=== PATIENT | female | born 1980 | race Caucasian/White ===

== ENCOUNTER 2016-07-13 03:50 | Inpatient (IN) | payer SELFPAY ==
[~2016-07-13] VITALS: Ht 144.8 cm; Wt 81.1 kg
[2016-07-13 04:44] VITALS: Ht 144.8 cm; Wt 81.1 kg
[2016-07-13 04:45] VITALS: BP 121/76; PULSE 78; RESP 20
[2016-07-13] MEDS ORDERED: ONDANSETRON 4 MG INJ IV ONE (04:54)
[2016-07-13] MEDS ORDERED: PRENAT PO (04:56)
[2016-07-13] MEDS ORDERED: MEPERIDINE 25 MG INJ IV ONE (05:00)
[2016-07-13] MEDS ORDERED: LACTATED RINGER'S 1,000 ML IV SCH (05:00)
[2016-07-13] MEDS ORDERED: LACTATED RINGER'S 1,000 ML IV ONE (05:00)
[2016-07-13 05:58] LABS: ALBUMIN 3.2 g/dl (3.3-4.9)
[2016-07-13 05:59] LABS: POTASSIUM 3.5 mmol/L (3.5-5.1)
--- NOTE | 2016-07-13 06:00 | RADRPT ---
PROCEDURE: US Abdomen (right upper quadrant). CLINICAL INDICATION: Abdominal pain. TECHNIQUE: Multiple real-time longitudinal and transverse images of the right upper quadrant of th e abdomen were acquired utilizing a curved array transducer. Images were reviewed on a high-resoluti on PACS workstation. COMPARISON: None FINDINGS: The liver is normal in size and demonstrates normal echogenicity. No focal intrahepatic mass is id entified. The gallbladder contains stones. There is no pericholecystic fluid or gallbladder wall t hickening. No intra or extrahepatic biliary dilatation is seen. The common bile duct measures 2.9 m m in maximal dimension. The portal and hepatic veins are patent demonstrating normal directional juan w. The visualized portions of the pancreas are unremarkable with obscuration of the tail of the panc reas. No free fluid is identified. The right kidney measures 11.6 cm in length. There is normal echogenicity within the right kidney. There is no perinephric fluid collection. No hydronephrosis, mass, or calculus is seen. IMPRESSION: Cholelithiasis. Otherwise, unremarkable right upper quadrant ultrasound. RPTAT: .Lulú Oakes MD, MD Date Time Electronically viewed and signed by .Lulú Oakes MD, on 07/13/2016 06:00 .G/
[2016-07-13 06:01] LABS: ALBUMIN/GLOBULIN RATIO 0.88; CREATININE 0.46 mg/dl (0.44-1.00); TOTAL PROTEIN 6.8 g/dl (6.1-8.1)
[2016-07-13 06:02] LABS: CALCIUM 8.5 mg/dl (8.4-10.2); URIC ACID 4.4 mg/dl (3.1-7.9)
[2016-07-13 06:08] LABS: BASOPHILS % 0.3 % (0.0-2.0); EOSINOPHILS # 0.1 10^3/ul (0.0-0.5); EOSINOPHILS % 1.1 % (0.0-7.0); HEMATOCRIT 36.1 % (37.0-47.0); HEMOGLOBIN 12.4 g/dl (12.0-16.0); LYMPHOCYTES % 13.3 % (15.0-51.0); MEAN CORPUSCULAR HEMOGLOBIN 30.6 pg (29.0-33.0); MEAN CORPUSCULAR HGB CONC 34.3 g/dl (32.0-37.0); MEAN CORPUSCULAR VOLUME 89.1 fl (82.0-101.0); MEAN PLATELET VOLUME 8.6 fl (7.4-10.4); MONOCYTE # 0.5 10^3/ul (0.3-0.9); MONOCYTES % 6.6 % (0.0-11.0); NEUTROPHILS % 78.7 % (39.0-77.0); PLATELET COUNT 292 10^3/UL (140-440); RED BLOOD COUNT 4.05 10^6/ul (4.20-5.40); RED CELL DISTRIBUTION WIDTH 13.4 % (11.5-14.5); UNCORRECTED WBC 7.6 10^3/ul (4.8-10.8); WHITE BLOOD COUNT 7.6 10^3/ul (4.8-10.8)
--- NOTE | 2016-07-13 06:11 | RADRPT ---
PROCEDURE: ULTRASOUND OBSTETRICAL CLINICAL INDICATION: 35-year-old female with pelvic pain. TECHNIQUE: Multiple sonographic images of the pelvis were obtained. The images were reviewed on a PACS workstation. COMPARISON: No prior studies are available for comparison. FINDINGS: The cervix is closed with a length of 3.0 cm measured transvaginally. There is a single viable intra uterine gestation. Cardiac activity is present with 141 beats per minute. There is a breech present ation. Measurements were made in order to determine age. The results are as follows: BPD = 6.76 cm, HC = 24.99 cm, AC = 23.70 cm, FL = 5.17 cm. This yields and estimated gestational ag e of approximately 27 weeks 4 days. The estimated date of delivery is October 08, 2016. The EFW = 11 20 +/- 168 g (2 lb 8 oz). The GP is 56%. The placenta is anterior. There is no evidence for an abruption or placenta previa. There is a normal amount of amniotic fluid with an MALICK = 12.3 cm. IMPRESSION: 1. Single viable intrauterine gestation of approximately 27 weeks 4 days with breech presentation. The estimated date of delivery is October 08, 2016. 2. The estimated weight is 1120 +/- 168 g (2 lb 8 oz). The GP is 56%. .Hakeem Holt MD, MD Date Time Electronically viewed and signed by .Hakeem Holt MD, MD on 07/13/2016 06:11 .M/
[2016-07-13 06:23] LABS: CONDITION 1
[2016-07-13] MEDS ORDERED: DEXTROSE 5%-LR 1,000 ML IV SCH (06:23)
[2016-07-13] MEDS ORDERED: ONDANSETRON 4 MG INJ IV PRN (06:30)
--- NOTE | 2016-07-13 06:40 | TRIAGE ---
OB Triage Datetime Report Generated by CPN: 07/13/2016 06:40 Datetime: 07/13/2016 04:12 Time of Arrival: 07/13/2016 03:48 EGA: 27.2 Arrived By: Wheelchair Arrived From: Home Chief Complaint: w/ hx PTD x 2 and gallstones to OB triage w/ c/o abd pain Movement: Present Contractions: Denies/Absent Rupture of Membranes: Denies Vaginal Bleeding: None Vaginal Discharge: Denies Recent Sexual Intercouse: Denies Abdominal Trauma: Not Applicable Patient Complaints: Nausea; Vomiting; Epigastric Pain Initial Plan: EFM Datetime: 07/13/2016 04:04 Maternal Assessment Level of Consciousness: Fully Conscious Headache: Denies Blurred Vision: No Nausea/Vomiting: Present RUQ Epigastric Pain: Present Facial Edema: None Labor Evaluation Frequency: placed Monitor Mode: External Heart Rate Monitor Mode: External US Comments: FHT 125 Pain Assessment Pain Scale: 6 Pain Presence: Intermittent Pain Type: Sharp; Stabbing Pain Location: Abdomen
[2016-07-13 06:57] LABS: ADD UMIC YES; URINE BILIRUBIN (Dip) NEGATIVE (NEGATIVE); URINE BLOOD (Dip) NEGATIVE (NEGATIVE); URINE COLOR YELLOW (YELLOW); URINE GLUCOSE (Dip) NEGATIVE (NEGATIVE); URINE KETONES (Dip) TRACE (NEGATIVE); URINE LEUKOCYTE ESTERASE (Dip) TRACE (NEGATIVE); URINE NITRITE (Dip) NEGATIVE (NEGATIVE); URINE TOTAL PROTEIN (Dip) TRACE (NEGATIVE); URINE UROBILINOGEN (Dip) 1.0 E.U./dL (0.1-1.0)
[2016-07-13 07:16] LABS: BACTERIA,URINE FEW; SQUAMOUS EPITHELIAL CELL,UR MODERATE; URINE RBCS NONE SEEN /HPF (0)
--- NOTE | 2016-07-13 07:47 | HP ---
Date/Time of Note Date/Time of Note DATE: 07/13/16 TIME: 07:40 OB - History Hx of Present Chief Complaint: epigastic pain Estimated Due Date: October 10, 2016 : 6 Para: 5 Care: Other ( records not available) Obstetrical Complications: None Medical Complications: Other (gallstones) Past Family/Social History * Past Medical, Surgical, Family and Obstetric Histories reviewed from chart. OB Admission Exam Vital Signs Vital Signs Vital Signs Date Time Temp Pulse Resp B/P Pulse Ox O2 Delivery O2 Flow Rate FiO2 07/13/16 04:45 97.8 78 20 121/76 Room Air Physical Exam HEENT: WNL Heart: Rhythm Normal Lungs: Clear Abdomen: Abnormal (upper abdominal tenderness) Extremities: Normal Reflexes: Normal Heart Rate: 130's Accelerations: Accelerations Present Decelerations: No Decelerations Last 72 hours Lab Results CBC & BMP 07/13/16 05:10 Liver Function Test 07/13/16 05:10 Alanine Aminotransferase (ALT/SGPT) 22 Albumin 3.2 L Alkaline Phosphatase 118 Aspartate Amino Transf (AST/SGOT) 18 Direct Bilirubin 0.00 Total Protein 6.8 OB Assessment/Plan Reason for admission: other Other Assessment: 27 weeks Gallstone pancreatitis Plan: Other Other plan: Admit NPO IV hydration Surgey consult JENNIFER HILL MD Jul 13, 2016 07:46
[2016-07-13] MEDS ORDERED: hydrOXYzine PAMOATE 25 MG CAP PO PRN (08:00)
[2016-07-13] MEDS: MEPERIDINE 50 MG INJ IV PRN ×5 (08:09→19:24)
[2016-07-13] MEDS: CEFTRIAXONE 1 GM/50 ML (PMX) 50 ML IVPB SCH (08:36)
[2016-07-13] MEDS: SOD CHLORIDE 0.9% 1,000 ML IV SCH ×2 (09:51→19:20)
[2016-07-13] MEDS ORDERED: BETAMET NA PHOS/AC(6 MG/ML) 5ML INJ IM ONE (12:30)
[2016-07-13] MEDS: hydrOXYzine HCL 100 MG INJ IM PRN ×3 (16:06→22:36)
--- NOTE | 2016-07-13 21:02 | CONS ---
DATE OF ADMISSION: 07/13/2016 DATE OF CONSULTATION: 07/13/2016 HISTORY OF PRESENT ILLNESS: Ms. Ruiz is a 35-year-old female who was admitted through the ER today due to severe right upper quadrant abdominal pain. She states that symptoms occurred yesterda y. She was seen in the ER yesterday and improved but then worsened again. She had nausea and vomit ing yesterday, but not today. She has a known history of gallstones and has been advised in the pas t to have her gallbladder removed, but has not. PAST MEDICAL HISTORY: Cholelithiasis. PAST SURGICAL HISTORY: None. MEDICATIONS: None. ALLERGIES: NO KNOWN DRUG ALLERGIES. PHYSICAL EXAMINATION: GENERAL: She is a well-nourished, well-developed female in some mild distress. VITAL SIGNS: She is afebrile. Vital signs stable. CHEST: Clear to auscultation bilaterally. HEART: Regular rhythm. ABDOMEN: Soft, with a gravid uterus and severe right upper quadrant tenderness to mild touch. LABORATORY DATA: Reveal white count of 7, hematocrit 36 and platelets 292. Sodium 140, potassium 3 .5, chloride 106, CO2 21, BUN and creatinine of 6.46 and glucose of 87. Her LFTs are no rmal limits. Amylase 145, lipase 304, and ultrasound revealed cholelithiasis, otherwise unremarkabl e. No pericholecystic fluid or gallbladder wall thickening. ASSESSMENT AND PLAN: 1. Ms. Ruiz is a 35-year-old female with right upper quadrant pain. 2. She does not have acute cholecystitis based on ultrasound findings. 3. I am not clear that she does have biliary colic either as she is extremely tender and it is very unlikely to have tenderness with biliary colic. 4. Treat conservatively at this point due to her 27 weeks' . She is not a surgical candid ate at this point, continue supportive care. Dictated By: JUD NEAL/MOLINA Conf#: [id number] DID#: [id number]
[2016-07-13] MEDS ORDERED: MEPERIDINE 50 MG INJ IM PRN (22:30)
[2016-07-14] MEDS ORDERED: HYDROmorphONE 1 MG/ML SYG IV PRN
[2016-07-14] MEDS: SOD CHLORIDE 0.9% 1,000 ML IV SCH ×4 (01:00→23:12)
[2016-07-14 01:12] LABS: BASOPHILS % 0.1 % (0.0-2.0); CONDITION 1; EOSINOPHILS % 0.2 % (0.0-7.0); HEMATOCRIT 34.6 % (37.0-47.0); HEMOGLOBIN 12.1 g/dl (12.0-16.0); LYMPHOCYTES # 0.9 10^3/ul (0.8-2.9); LYMPHOCYTES % 6.5 % (15.0-51.0); MEAN CORPUSCULAR HEMOGLOBIN 30.8 pg (29.0-33.0); MEAN CORPUSCULAR HGB CONC 34.8 g/dl (32.0-37.0); MEAN CORPUSCULAR VOLUME 88.4 fl (82.0-101.0); MONOCYTE # 0.7 10^3/ul (0.3-0.9); MONOCYTES % 5.7 % (0.0-11.0); NEUTROPHIL # 11.5 10^3/ul (1.6-7.5); NEUTROPHILS % 87.5 % (39.0-77.0); PLATELET COUNT 315 10^3/UL (140-440); RED BLOOD COUNT 3.91 10^6/ul (4.20-5.40); RED CELL DISTRIBUTION WIDTH 13.6 % (11.5-14.5); UNCORRECTED WBC 13.1 10^3/ul (4.8-10.8); WHITE BLOOD COUNT 13.1 10^3/ul (4.8-10.8)
--- NOTE | 2016-07-14 01:37 | RADRPT ---
PROCEDURE: Ultrasound examination of the abdomen. CLINICAL INDICATION: Abdominal pain TECHNIQUE: Ultrasound examination of the abdomen. Transabdominal technique was employed. M-mode t echnique employed COMPARISON: 07/13/2016. FINDINGS: Cervix measures 3.03 cm. Heart rate is 136 beats per minute. Presentation is cephalic. Bursitis a nterior grade 1. No evidence of placental abruption. IMPRESSION: Cervix measures 3.03 cm. RPTAT: [facility] Physician Michele Date Time Electronically viewed and signed by Physician Michele on 07/14/2016 01:37 RS/
--- NOTE | 2016-07-14 01:41 | RADRPT ---
PROCEDURE: Renal US. CLINICAL INDICATION: Abdominal pain. TECHNIQUE: Multiple sonographic images of the kidneys were obtained. The images were reviewed on a PACS workstation. COMPARISON: No prior studies are available for comparison. FINDINGS: Proximal abdominal aorta measures 17 mm. Right kidney measures 123 mm. Left kidney measures up to 1 20 mm. Gallbladder wall measures 3 mm. Common bile duct measures 4 mm. Liver measures 173 mm. Stephania er is homogeneous in texture. Pancreas is not visualized secondary to overlying bowel gas. Gallbla dder is unremarkable. The appendix was not included on this examination. IMPRESSION: No acute process in the right upper quadrant. RPTAT: [facility] Physician Michele Date Time Electronically viewed and signed by Physician Michele on 07/14/2016 01:41 RS/
[2016-07-14] MEDS: hydrOXYzine HCL 100 MG INJ IM PRN ×2 (02:32→08:12)
[2016-07-14] MEDS: MEPERIDINE 50 MG INJ IV PRN ×7 (02:33→22:21)
[2016-07-14 10:21] LABS: POTASSIUM 3.4 mmol/L (3.5-5.1)
[2016-07-14] MEDS: CEFTRIAXONE 1 GM/50 ML (PMX) 50 ML IVPB SCH (10:21)
[2016-07-14 10:24] LABS: ALBUMIN/GLOBULIN RATIO 0.93; BILIRUBIN,INDIRECT 0.4 mg/dl (0-1.1); BILIRUBIN,TOTAL 0.4 mg/dl (0.2-1.3); CALCIUM 8.5 mg/dl (8.4-10.2); CREATININE 0.52 mg/dl (0.44-1.00); TOTAL PROTEIN 6.2 g/dl (6.1-8.1)
[2016-07-14] MEDS ORDERED: LORAZEPAM 2 MG INJ IV ONE (11:30)
--- NOTE | 2016-07-14 12:50 | RADRPT ---
PROCEDURE: MRI abdomen without contrast; MRCP CLINICAL INDICATION: abdominal pain TECHNIQUE: Multiplanar, multisequence imaging of the abdomen was obtained without contrast. Imagi ng includes axial T2, T2 fat sat, in and out of phase gradient images, and noncontrast T1 fat-satura alisha images. In addition, a dedicated high T2 signal intensity MRCP images were obtained in multiple planes with 3-D reconstructions. COMPARISON: Ultrasound of the abdomen on the same date FINDINGS: The gallbladder is distended with wall thickening adjacent fat stranding and fluid suggestive for in flammation. The gallstone is present within the gallbladder layering at the neck measuring 1.5 cm. There is no intrahepatic biliary ductal dilatation. The common duct measures 6 mm which is at the upper limits of normal in size. The common duct fine detail is limited secondary to motion with no visible intraductal stone. The pancreas is unremarkable without visible inflammation and there is n o pancreatic ductal dilatation. A trace amount of fluid is seen extending along the right pericolic gutter into the right lower quadrant. The appendix is not visible on the images given. There is partial visualization of a gravid uterus. There is cephalic presentation of the fetus with anterior / fundal position of the placenta. Fine detail of the fetus is not well seen on this stud y. There is mild bilateral hydronephrosis of the kidneys slightly more pronounced on the right. The spleen and liver demonstrate uniform signal intensity without focal abnormality. There is a fec al filled colon without visible obstruction. There are no gross enlarged lymph nodes. The aorta an d the osseous structures unremarkable. IMPRESSION: Gallstone is seen in the gallbladder with visualized gallbladder wall thickening along with perichol ecystic fat stranding and a small amount of fluid which extends into the right lower quadrant and th is is suggestive for acute cholecystitis. Limited MRCP images demonstrate no gross evidence for intraductal stone. There is bilateral hydronephrosis more pronounced on the right which may be related to gravid uterus . There is a fecal filled colon. RPTAT: AA .Twyla Sotelo MD, Date Time Electronically viewed and signed by .Twyla Sotelo MD, on 07/14/2016 12:49 .J/
[2016-07-14] MEDS ORDERED: PIPER-TAZO 3.375 GM IV (PMX) 100 ML IVPB SCH ×2 (18:00)
--- NOTE | 2016-07-14 20:11 | PN ---
DATE: 07/14/2016 SUBJECTIVE: Ms. Ruiz is hospital day 1 for right upper quadrant pain. She had an MRCP today which was concerning for cholecystitis. The patient states she does feel better. OBJECTIVE: VITAL SIGNS: She is afebrile. Vital signs stable. ABDOMEN: Still protuberant with some right upper quadrant tenderness. LABORATORY DATA: Today reveal white count of 13, hematocrit of 35. Of note is normal LFTs, normal amylase of 544 and lipase of 1292. Her MR today revealed a gallstone in the gallbladder with good visualized gallbladder wall thickening along with pericholecystic fat stranding and small amount of fluid, which extends into the right lower quadrant suggestive of acute cholecystitis. ASSESSMENT AND PLAN: Ms. Ruiz is a 35-year-old female with likely acute cholecystitis. 1. I am going to obtain a HIDA scan because if the patient has not improved on IV antibiotics, then she will require an intervention for her gallbladder. 2. Due to her 27 weeks of , I think surgery is very high risk and therefore she would need a percutaneous cholecystostomy. I have spoken to radiology about this already. So we will await the HIDA scan results as well as the 24 hours of IV Zosyn. We will reevaluate in the morning. If she is better or if the HIDA scan is negative, obviously, she will not require intervention. Dictated By: JUD NEAL/MOLINA Conf#: [id number] DID#: [id number] MTDD
--- NOTE | 2016-07-14 20:56 | RADRPT ---
PROCEDURE: HIDA scan CLINICAL INDICATION: 35 -year-old patient with abdominal pain. TECHNIQUE: Following the intravenous injection of 4.0 mCi of Tc-99m mebrofenin, multiple images of the abdomen were obtained up to 90 minutes post injection. COMPARISON: No prior studies. FINDINGS: The liver is promptly visualized, demonstrates homogeneous distribution of radionuclide. There is visualization of the common bile duct and gastrointestinal activity within normal time. The gallbladder is not visualized up to 90 minutes post injection. IMPRESSION: 1. Nonvisualization of the gallbladder up to 90 minutes post injection. 2. No evidence of common bile duct obstruction. RPTAT: QQ .Neeru Mayen MD, MD Date Time Electronically viewed and signed by .Neeru Mayen MD, on 07/14/2016 20:56 .L/
[2016-07-14] MEDS: PIPER-TAZO 3.375 GM IV (PMX) 100 ML IVPB SCH (21:05)
--- NOTE | 2016-07-14 23:16 | CONS ---
DATE OF ADMISSION: 07/13/2016 DATE OF CONSULTATION: 07/13/2016 HISTORY OF PRESENT ILLNESS: The patient is about 28 weeks . Presented the day before [facility] of right upper quadrant abdominal pain. Ultrasound showed gallbladder. However, common bi le duct is 2.9 mm, which is not increased, and there is no evidence of gallbladder edema. White cou nt is normal and patient does not have fever; however, the pain apparently has been very, very sever e. She is currently on large doses of Stadol, and it does control her , but she requires this medication every 3 hours. When I arrived at the floor, GI physician was also on the floor. He saw the patient, and given the absence of a dilated common bile duct or any evidence of cholecystitis, s he essentially recommended expectant management with pain medication, IV fluids, and n.p.o. They tried to do MRCP to assess whether there is a stone on the common bile duct; however, patient w as claustrophobic, and also she could not tolerate the apron they placed for abdominal protection, s o the procedure was not done. However, GI essentially stated that at this point, given normal commo n bile duct, this can be deferred, and expectant management can be continued. Also, I need to state that her AST, ALT are normal; however, her lipase is elevated. Again, the GI physician was not at that moment very concerned. Dr. Felder, the metal riveting machine operator who at that time was weapons specialist and taking care of the patient, spoke wit h the GI specialist to see if the betamethasone should be given for lung maturity, and she essential ly stated at this time we should abstain from giving the patient betamethasone, so it was not given. Her cervical length is normal, and she denies any mid and lower abdominal pain or back pain which wo uld signify contractions, so magnesium sulfate was not given. I have to say, this currently is not an obstetrics-related situation, and the GI physician would be the primary consult on this patient, and I will defer to his judgment. If there is any question we can answer; obstetrics related or anything that we can help further, please let us know. Dictated By: BI BREWER/MOLINA Conf#: [id number] [facility]#: [id number]
[2016-07-15] MEDS: MEPERIDINE 50 MG INJ IV PRN ×7 (00:34→22:15)
[2016-07-15] MEDS: PIPER-TAZO 3.375 GM IV (PMX) 100 ML IVPB SCH ×6 (02:39→23:54)
[2016-07-15 06:18] LABS: BASOPHILS % 0.3 % (0.0-2.0); EOSINOPHILS # 0.1 10^3/ul (0.0-0.5); EOSINOPHILS % 0.5 % (0.0-7.0); HEMATOCRIT 30.4 % (37.0-47.0); HEMOGLOBIN 10.8 g/dl (12.0-16.0); LYMPHOCYTES # 1.1 10^3/ul (0.8-2.9); LYMPHOCYTES % 8.3 % (15.0-51.0); MEAN CORPUSCULAR HEMOGLOBIN 31.2 pg (29.0-33.0); MEAN CORPUSCULAR HGB CONC 35.6 g/dl (32.0-37.0); MEAN CORPUSCULAR VOLUME 87.7 fl (82.0-101.0); MEAN PLATELET VOLUME 8.1 fl (7.4-10.4); MONOCYTE # 0.9 10^3/ul (0.3-0.9); MONOCYTES % 6.9 % (0.0-11.0); NEUTROPHIL # 11.2 10^3/ul (1.6-7.5); PLATELET COUNT 327 10^3/UL (140-440); RED BLOOD COUNT 3.46 10^6/ul (4.20-5.40); RED CELL DISTRIBUTION WIDTH 13.6 % (11.5-14.5); UNCORRECTED WBC 13.4 10^3/ul (4.8-10.8); WHITE BLOOD COUNT 13.4 10^3/ul (4.8-10.8)
[2016-07-15 06:19] LABS: INR 1.08; PT RATIO 1.1
[2016-07-15 06:20] LABS: PARTIAL THROMBOPLASTIN TIME 34.8 Sec (25.0-35.0)
[2016-07-15 06:48] LABS: CONDITION 1
[2016-07-15] MEDS ORDERED: BISACODYL 10 MG SUPP PR ONE (08:00)
--- NOTE | 2016-07-15 08:17 | QN ---
Documentation Comment Laborist HD#3 for 35yo with RUQ and epigastric pain hospitalized 2/2 concern for cholelithiasis vs cholecystitis. Since admission, pt has been managed conservatively with IV pain meds, IV fluids and bowel rest. GI and surgical consults have been obtained, as well as MFM consult. Currently Dr. Smith of Surgery is the primary solar consultant. FWB has remained reassuring during hospital course. HIDA scan performed last night was negative for obstruction of the CBD. Pt reports pain has progressively improved over the last 2 days. She is having RLQ discomfort as well today. Last stool was on the day of admission and pt reports she normally has 2-3 stools per day. Reports normal FM, denies LOF, VB, UCs, nausea, vomiting, VEE or visual changes. VS Afebrile, 131/70 (140s-150s/90s yesterday when uncomfortable), 100 NST overnight: Reactive [place]: acontractile Gen: appears slightly uncomfortable Abd: soft, gravid, mod TTP in RUQ and epigastric areas, otherwise nontender including RLQ Ext: symmetric, NT, no edema Labs: CBC (07/15/16) 13.4>10.8/30.4<327 Lipase (07/14/16) 1282 (from 304) AST/ALT (07/14/16) A/P: 1) Abdominal pain: Acute cholecystitis vs cholelithiasis. WBC stable in comparison to yesterday. Pt remains afebrile. Will continue Zosyn x24H as per Dr. Luna's recommendations, IVF, pain meds and NPO status. In light of negative HIDA scan, likely patient will continue to be managed conservatively. 2) : Pt without acute OB concerns. NSTs from yesterday reassuring. Continue NST qShift. 3) Elevated BPs: Pt without hx of cHTN or PreE during prior pregnancies. Likely elevations 2/2 pain. Will repeat CMP today however and U/A to r/o other pathology. 4) Constipation: Dulcolax suppository. Questions answered to the best of my ability. Will await Surgical consultants recommendations. DESMOND ARNETT MD Jul 15, 2016 08:16
[2016-07-15 08:26] LABS: ALBUMIN 2.8 g/dl (3.3-4.9); POTASSIUM 3.2 mmol/L (3.5-5.1)
[2016-07-15 08:29] LABS: ALBUMIN/GLOBULIN RATIO 0.87; BILIRUBIN,INDIRECT 0.2 mg/dl (0-1.1); BILIRUBIN,TOTAL 0.2 mg/dl (0.2-1.3); CALCIUM 8.2 mg/dl (8.4-10.2); CREATININE 0.49 mg/dl (0.44-1.00)
[2016-07-15] MEDS: SOD CHLORIDE 0.9% 1,000 ML IV SCH ×3 (09:36→23:53)
[2016-07-15 11:04] LABS: ADD UMIC NO; URINE BILIRUBIN (Dip) NEGATIVE (NEGATIVE); URINE BLOOD (Dip) NEGATIVE (NEGATIVE); URINE COLOR LT. YELLOW (YELLOW); URINE GLUCOSE (Dip) NEGATIVE (NEGATIVE); URINE KETONES (Dip) 40 (NEGATIVE); URINE LEUKOCYTE ESTERASE (Dip) NEGATIVE (NEGATIVE); URINE NITRITE (Dip) NEGATIVE (NEGATIVE); URINE TOTAL PROTEIN (Dip) NEGATIVE (NEGATIVE); URINE UROBILINOGEN (Dip) 0.2 E.U./dL (0.1-1.0)
[2016-07-15] MEDS ORDERED: LIDOCAINE 1%/EPI 30 ML INJ INJ SCH (14:30)
--- NOTE | 2016-07-15 15:20 | RADRPT ---
PROCEDURE: Ultrasound guided cholecystostomy. CLINICAL INDICATION: Right upper quadrant abdomen pain. Cholecystitis. The patient is a nd not suitable for surgery. TECHNIQUE: Informed consent was obtained. The procedure, risks, benefits, complications and alternatives were explained to the patient. Risks including bleeding and infection were explained. The patient under stood and was willing to proceed. A procedural pause was performed. The patient's name, date of , and procedure to be performed were verified. Using local anesthetic, sterile technique and ultrasound guidance, a 19-gauge Yueh needle was advanc ed through the liver and into the gallbladder. Ultrasound was performed confirming position. Thick bilious fluid was also aspirated confirming position. The needle from the Yueh catheter was remove d, leaving the Yueh catheter in place within the gallbladder. A 0.035-inch Amplatz guidewire was ad vanced through the Yueh catheter into the gallbladder. The Yueh catheter was removed. The tract wa s dilated to 8-Gambian, and an 8.5 Gambian multipurpose drainage catheter was advanced over the guidew lawrence into the gallbladder. The guidewire was removed. Additional ultrasound imaging was performed c onfirming position. The catheter was then sutured to the patient's skin with 2-0 silk. 60 ml of bi lious fluid was aspirated. The catheter was connected to a drainage bag. A dressing was applied. T he patient tolerated procedure well. COMPARISON: Right upper quadrant abdomen ultrasound, MRI, and nuclear medicine hepatobiliary scan dated 07/14/2016. FINDINGS: Final ultrasound images demonstrate the drainage catheter in satisfactory position within the gallbl adder. IMPRESSION: 1. Successful ultrasound guided cholecystostomy. RPTAT: QQ .Cecilio Suazo MD, Date Time Electronically viewed and signed by .Cecilio Suazo MD, on 07/15/2016 15:20 .R/
[2016-07-15] MEDS: POTASSIUM CHLORIDE 50 ML IVPB SCH ×3 (15:53→18:34)
[2016-07-16] MEDS: MEPERIDINE 50 MG INJ IV PRN ×3 (01:54→12:27)
[2016-07-16] MEDS: PIPER-TAZO 3.375 GM IV (PMX) 100 ML IVPB SCH ×2 (06:06→11:56)
--- NOTE | 2016-07-16 09:35 | PN ---
DATE: 07/16/2016 SUBJECTIVE: Ms. Ruiz is now hospital day 3 for her acute cholecystitis. She underwent a perc utaneous cholecystostomy yesterday. The patient is feeling better. She is tolerating a soft diet w ith minimal abdominal pain. PHYSICAL EXAMINATION: VITAL SIGNS: He is afebrile. Vital signs stable. ABDOMEN: Soft and within normal limits for her 27 weeks' . LABORATORY DATA: From yesterday, white count 13, hematocrit 38, platelets of 327. ASSESSMENT AND PLAN: Ms. Ruiz is a 35-year-old female status post percutaneous cholecystostom y for acute cholecystitis. Okay for discharge. The patient needs to follow up with me in about 2 to 3 weeks for another percutaneous cholecystostomy to see if we can remove the tube. If she still roca s a cystic duct obstruction, she will require the drain until after . Dictated By: JUD NEAL/MOLINA Conf#: [id number] DID#: [id number]
[2016-07-16] MEDS: SOD CHLORIDE 0.9% 1,000 ML IV SCH (11:56)
--- NOTE | 2016-07-16 12:31 | DS ---
DATE OF ADMISSION: 07/13/2016 DATE OF DISCHARGE: 07/16/2016 DISCHARGE DIAGNOSES: 1. Intrauterine at 27 weeks. 2. Cholecystitis. 3. Status post percutaneous cholecystotomy. HISTORY AND HOSPITAL COURSE: The patient is a 35-year-old G6, P5 who presented at 27 weeks complain ing of epigastric pain. Patient was found to have cholecystitis with some elevated lipase and amyla se, GI and surgical consultation for pain. The patient was to have a percutaneous cholecystotomy. The patient did not have any OB issues. There were positive heart tones. Her cervical length was within normal limits. The patient was followed by [facility]. GI and general surgery. Post a per cutaneous cholecystotomy patient is feeling much better. The patient was seen on 07/16/2016 by [facility] surgery, who felt that the patient could be discharged home. The patient will see Dr. Vivienne jacinto 2 to 3 days ____ and also to follow up with Dr. Hesham Luna, General Surgery in 2 to 3 weeks for removal of percutaneous cholecystotomy. The patient will have teaching of how to manage her ch olecystostomy before leaving the hospital. ER precautions given. Patient is stable upon discharge. Dictated By: KRISTIN NEWTON MD /NTS Conf#: [id number] DID#: [id number]
== END 2016-07-16 14:00 | disposition home or self-care (01) | DRG 781 ==
LOC: OBT 03:50 → L-D 03:50 → OBT 06:20 → OBG 06:20
PROVIDERS: ADMIT Obstetrics & Gynecology; ATTEND Obstetrics & Gynecology
PROC: 0F943ZZ Drainage of Gallbladder, Percutaneous Approach (ICD-10-PCS; principal; 2016-07-15)
DX: O99.612 Diseases of the digestive system complicating pregnancy, second trimester (principal); O09.522 Supervision of elderly multigravida, second trimester; Z3A.27 27 weeks gestation of pregnancy
CPT/HCPCS: 74181; 76700; 76705; 76815; 76817; 78226; 80053; 81001; 81003; 82150; 83690; 84560; 85025; 85610; 85730; 87070; 87075; 87086; 96360; 96374; 96375; A9537; G0463; J0696; J1170; J2060; J2175; J2405; J2543; J3410; J3480; J7030; J7120; J7121